=== PATIENT | female | born 1955 | race Caucasian/White ===

== ENCOUNTER 2017-02-25 05:13 | Emergency (ER) | payer MEDICAID, OTHER ==
[~2017-02-25] VITALS: Ht 162.6 cm; Wt 68.0 kg
[2017-02-25 05:13] VITALS: BP 141/82
[2017-02-25] MEDS ORDERED: DEXAMETHASONE SOD PHOSPHATE 10 MG/ML VIAL ONE (05:29)
[2017-02-25] MEDS ORDERED: FAMOTIDINE (20 MG) 20 MG TABLET PO ONE (05:30)
[2017-02-25] MEDS ORDERED: diphenhydrAMINE HCL 50 MG/ML VIAL ONE (05:30)
[2017-02-25] MEDS ORDERED: diphenhydrAMINE HCL 50 MG/ML VIAL IM ONE (05:30)
[2017-02-25] MEDS ORDERED: FAMOTIDINE (20 MG) 20 MG TABLET ONE (05:30)
[2017-02-25] MEDS ORDERED: DEXAMETHASONE SOD PHOSPHATE 4 MG/ML VIAL IM ONE (05:30)
== END 2017-02-25 05:27 | disposition home or self-care (01) ==
LOC: ER 05:18
DX: L50.0 Allergic urticaria (principal); I10 Essential (primary) hypertension; M54.30 Sciatica, unspecified side; Z98.890 Other specified postprocedural states
CPT/HCPCS: 96372 ×2; 99284; A4606; J1100; J1200; Z7610

== ENCOUNTER 2017-05-25 03:07 | Emergency (ER) | payer MEDICAID ==
[~2017-05-25] VITALS: Ht 165.1 cm; Wt 85.7 kg
--- NOTE | 2017-05-25 03:20 | NUR ---
PT PRESENTED TO THE ER WITH A C/O ALL OVER HIVES, REDNESS AND ITCHINESS. PT IS NOT SURE WHAT IS CAUSING THE REACTION, BUT IT STARTED AT 2300. PT STATED THAT SHE DID NOT TAKE ANY MEDICATION FOR THE REACTION. PT DENIES EATING ANYTHING NEW, DENIES USING NEW LOTION OR LAUNDRY DETERGENT. PT PUT HYDROCORTIZONE CREAM ON THE HIVES.
--- NOTE | 2017-05-25 03:22 | NUR ---
DR. MACKEY IS AT THE BEDSIDE.
[2017-05-25] MEDS ORDERED: diphenhydrAMINE HCL 50 MG CAPSULE ONE (03:25)
[2017-05-25] MEDS ORDERED: DEXAMETHASONE SOD PHOSPHATE 10 MG/ML VIAL ONE (03:25)
[2017-05-25] MEDS ORDERED: FAMOTIDINE (20 MG) 20 MG TABLET ONE ×2 (03:25→03:30)
[2017-05-25] MEDS ORDERED: DEXAMETHASONE SOD PHOSPHATE 4 MG/ML VIAL IM ONE (03:30)
[2017-05-25] MEDS ORDERED: diphenhydrAMINE HCL 50 MG CAPSULE PO ONE (03:30)
[2017-05-25] MEDS ORDERED: FAMOTIDINE (20 MG) 20 MG TABLET PO ONE (03:30)
--- NOTE | 2017-05-25 03:31 | NUR ---
PT REC'D MEDICATION ORDERED. WILL CONTINUE TO MONITOR THE PT.
--- NOTE | 2017-05-25 03:59 | NUR ---
PT APPEARS TO BE RESTING COMFORTABLY WITH NO S/S OF PAIN OR DISTRESS.
[2017-05-25] MEDS ORDERED: diphenhydrAMINE HCL 50 MG/ML VIAL ONE (04:35)
[2017-05-25] MEDS ORDERED: diphenhydrAMINE HCL 50 MG/ML VIAL IM ONE (05:00)
--- NOTE | 2017-05-25 05:03 | NUR ---
Patient discharged to home in stable condition. Written and verbal after care instructions given. Patient verbalizes understanding of instruction. PT'S HIVES ARE GONE. SLIGHT REDNESS NOTED ON CHEST, BUE. PT AMBULATED TO THE BATHROOM WITH A STEADY GAIT. PT IS TAKING A TAXI HOME AND WILL NET SOFTWARE DEVELOPER HER CAR LATER. PT'S VSS.
[2017-05-25 05:04] VITALS: BP 137/78
== END 2017-05-25 05:00 | disposition home or self-care (01) ==
LOC: ER 03:09
DX: L50.9 Urticaria, unspecified (principal); I10 Essential (primary) hypertension; M54.30 Sciatica, unspecified side
CPT/HCPCS: 96372 ×2; 99284; A4606; J1100; J1200; Q0163; Z7610

== ENCOUNTER 2018-02-04 20:46 | Emergency (ER) | payer MEDICAID ==
[~2018-02-04] VITALS: Ht 167.6 cm; Wt 88.9 kg
[2018-02-04 20:50] VITALS: BP 132/60
== END 2018-02-04 21:50 | disposition home or self-care (01) ==
LOC: ER 20:48
DX: S40.862A Insect bite (nonvenomous) of left upper arm, initial encounter (principal); S80.862A Insect bite (nonvenomous), left lower leg, initial encounter; I10 Essential (primary) hypertension; M54.30 Sciatica, unspecified side; Z96.651 Presence of right artificial knee joint; W57.XXXA Bitten or stung by nonvenomous insect and other nonvenomous arthropods, initial encounter; Y93.89 Activity, other specified; Y92.89 Other specified places as the place of occurrence of the external cause; Y99.8 Other external cause status
CPT/HCPCS: A4606; Z7610

== ENCOUNTER 2019-02-28 04:03 | Emergency (ER) | payer MEDICAID ==
[~2019-02-28] VITALS: Ht 165.1 cm; Wt 83.9 kg
[2019-02-28 04:10] VITALS: BP 147/113
[2019-02-28] MEDS ORDERED: DEXAMETHASONE SOD PHOSPHATE 10 MG/ML VIAL ONE (04:38)
[2019-02-28] MEDS ORDERED: diphenhydrAMINE HCL 50 MG/ML VIAL ONE (04:38)
--- NOTE | 2019-02-28 04:49 | NUR ---
Patient discharged to home in stable condition. Written and verbal after care instructions given. Patient verbalizes understanding of instruction. Pt ambulatory with a steady gait
[2019-02-28] MEDS ORDERED: diphenhydrAMINE HCL 50 MG/ML VIAL IM ONE (05:00)
[2019-02-28] MEDS ORDERED: DEXAMETHASONE SOD PHOSPHATE 10 MG/ML VIAL IM ONE (05:00)
== END 2019-02-28 04:49 | disposition home or self-care (01) ==
LOC: ER 04:05
DX: L50.9 Urticaria, unspecified (principal); I10 Essential (primary) hypertension; Z98.890 Other specified postprocedural states
CPT/HCPCS: 96372 ×2; 99283; J1100; J1200

== ENCOUNTER 2019-11-16 02:23 | Emergency (ER) | payer MEDICAID ==
[~2019-11-16] VITALS: Ht 152.4 cm; Wt 92.1 kg
[2019-11-16 02:48] VITALS: BP 169/110
[2019-11-16] MEDS ORDERED: FAMOTIDINE (20 MG) 20 MG TABLET ONE ×2 (03:02→04:05)
[2019-11-16] MEDS ORDERED: DEXAMETHASONE SOD PHOSPHATE 10 MG/ML VIAL ONE (03:02)
[2019-11-16] MEDS: FAMOTIDINE (20 MG) 20 MG TABLET PO ONE (03:06)
[2019-11-16] MEDS: DEXAMETHASONE SOD PHOSPHATE 4 MG/ML VIAL IM ONE (03:06)
[2019-11-16] MEDS ORDERED: diphenhydrAMINE HCL 50 MG/ML VIAL ONE (04:02)
[2019-11-16] MEDS: diphenhydrAMINE HCL 50 MG/ML VIAL IM ONE (04:04)
== END 2019-11-16 05:05 | disposition home or self-care (01) ==
LOC: ER 02:27
DX: L50.8 Other urticaria (principal); I10 Essential (primary) hypertension; Z98.890 Other specified postprocedural states
CPT/HCPCS: 96372 ×2; 99284; J1100; J1200

== ENCOUNTER 2019-11-17 06:31 | Emergency (ER) | payer MEDICAID ==
[~2019-11-17] VITALS: Ht 160 cm; Wt 92.1 kg
--- NOTE | 2019-11-17 06:41 | NUR ---
pt bibself c/o hives throughout body x 4 days, was seen here yesterday d/c with steroid medication. denies sob. scheduled allergy test 11/23/19; pt to bed 3, awake, alert, -sob, vss, nad noted, pending md queen
[2019-11-17] MEDS ORDERED: EPINEPHRINE (1:1000) 1 MG/ML AMPUL ONE (06:52)
[2019-11-17] MEDS ORDERED: predniSONE 10 MG TABLET ONE (06:52)
[2019-11-17] MEDS ORDERED: predniSONE 20 MG TABLET ONE (06:53)
--- NOTE | 2019-11-17 06:59 | NUR ---
epi sq given, placed on monitor. vss.
[2019-11-17] MEDS ORDERED: FAMOTIDINE/PF INJ 20 MG/2 ML VIAL IV ONE ×2 (07:00→07:16)
[2019-11-17] MEDS ORDERED: EPINEPHRINE (1:1000) MDV 30 MG/30ML VIAL SUBCUT ONE (07:00)
[2019-11-17] MEDS ORDERED: predniSONE 10 MG TABLET PO ONE (07:00)
[2019-11-17] MEDS ORDERED: IV NS 0.9% 1,000 ML BAG IV ONE (07:00)
--- NOTE | 2019-11-17 08:00 | NUR ---
PATIENT RESTING, SYMPTOMS SLOWLY IMPROVING.
--- NOTE | 2019-11-17 09:08 | NUR ---
IV removed. Catheter intact and site benign. Pressure and 4x4 applied to site. No bleeding noted. Patient discharged to home in stable condition. Written and verbal after care instructions given. Patient verbalizes understanding of instruction.
[2019-11-17 09:09] VITALS: BP 137/88
== END 2019-11-17 09:10 | disposition home or self-care (01) ==
LOC: ER 06:34
DX: L50.0 Allergic urticaria (principal); I10 Essential (primary) hypertension; M54.30 Sciatica, unspecified side; Z98.890 Other specified postprocedural states
CPT/HCPCS: 96372; 96374; 99284; J0171 ×2; J3490; J7030; J7512 ×2

== ENCOUNTER 2020-03-29 01:08 | Emergency (ER) | payer MEDICARE, OTHER ==
[~2020-03-29] VITALS: Ht 167.6 cm; Wt 70.8 kg
--- NOTE | 2020-03-29 01:10 | NUR ---
PT AAOX4. BIBSELF C/O ALLERGIC RXN TO NUTS, INGESTED AROUND 7PM, BOGDAN TAKEN 10PM NO RELIEF. PT PLACED IN BED 4 ON MONITOR AND PULSE OX. NO ACUTE DISTRESS NOTED. RR EVEN AND UNLABORED. MD AT BEDSIDE FOR EVAL AWAITING ORDERS.
[2020-03-29] MEDS ORDERED: diphenhydrAMINE HCL 50 MG/ML VIAL ONE (01:34)
[2020-03-29] MEDS ORDERED: DEXAMETHASONE SOD PHOSPHATE 10 MG/ML VIAL ONE (01:34)
[2020-03-29] MEDS ORDERED: diphenhydrAMINE HCL 50 MG/ML VIAL IM ONE (02:00)
[2020-03-29] MEDS ORDERED: DEXAMETHASONE SOD PHOSPHATE 4 MG/ML VIAL IM ONE (02:00)
--- NOTE | 2020-03-29 02:20 | NUR ---
PT STATED SHE FEELS BETTER, REQUESTING TO GO HOME. MD AWARE.
--- NOTE | 2020-03-29 02:23 | NUR ---
Patient discharged to home in stable condition. Written and verbal after care instructions given. Patient verbalizes understanding of instruction and RX. Pt was told to be picked up or take an uber. Pt stated she will be picked up. vss. Ambulated with steady gait. vss.
[2020-03-29 02:26] VITALS: BP 151/89
== END 2020-03-29 02:27 | disposition home or self-care (01) ==
LOC: ER 01:12
DX: T78.1XXA Other adverse food reactions, not elsewhere classified, initial encounter (principal); I10 Essential (primary) hypertension; Z98.890 Other specified postprocedural states; X58.XXXA Exposure to other specified factors, initial encounter
CPT/HCPCS: 96372 ×2; 99284; J1100; J1200

== ENCOUNTER 2020-04-10 23:09 | Emergency (ER) | payer MEDICARE, MEDICAID ==
[~2020-04-10] VITALS: Ht 167.6 cm; Wt 70.8 kg
[2020-04-10 23:19] VITALS: BP 158/110
[2020-04-10] MEDS ORDERED: diphenhydrAMINE HCL 50 MG/ML VIAL ONE (23:56)
[2020-04-10] MEDS ORDERED: EPINEPHRINE (1:1000) 1 MG/ML AMPUL ONE (23:56)
[2020-04-10] MEDS ORDERED: FAMOTIDINE (20 MG) 20 MG TABLET ONE (23:57)
[2020-04-10] MEDS ORDERED: predniSONE 20 MG TABLET ONE (23:57)
[2020-04-11] MEDS ORDERED: EPINEPHRINE (1:1000) 1 MG/ML AMPUL IM ONE
[2020-04-11] MEDS ORDERED: FAMOTIDINE (20 MG) 20 MG TABLET PO ONE
[2020-04-11] MEDS ORDERED: diphenhydrAMINE HCL 50 MG/ML VIAL IM ONE
[2020-04-11] MEDS ORDERED: predniSONE 50 MG TABLET PO ONE
== END 2020-04-11 01:36 | disposition home or self-care (01) ==
LOC: ER 23:11
DX: L50.8 Other urticaria (principal); I10 Essential (primary) hypertension; Z98.890 Other specified postprocedural states
CPT/HCPCS: 96372 ×2; 99284; J0171; J1200; J7512

== ENCOUNTER 2020-10-27 00:11 | Emergency (ER) | payer MEDICARE, OTHER ==
[~2020-10-27] VITALS: Ht 160 cm; Wt 83.9 kg
--- NOTE | 2020-10-27 00:35 | NUR ---
CALLED PT TO TRIAGE ROOM. NO ANSWER
--- NOTE | 2020-10-27 00:41 | NUR ---
BIBS FOR C/O BILATERAL LOWER BAD PAIN RADIATING TO THE BACK X 3 DAYS, - DYSURIA, - HEMATURIA, + URINARY FREQUESNCY. PT AMBULATORY TO BED 3. WAS PLACED ON A MONITOR
[2020-10-27 01:40] LABS: BILIRUBIN,URINE NEGATIVE (NEGATIVE); COLOR,URINE YELLOW (YELLOW); LEUKOCYTE ESTERASE ,URINE MODERATE (NEGATIVE); NITRITE, URINE NEGATIVE (NEGATIVE); PROTEIN,URINE NEGATIVE (NEGATIVE); UGLUCOSE NEGATIVE (NEGATIVE); UROBILINOGEN,URINE 0.2 EU/dL (0.2)
[2020-10-27] MEDS ORDERED: KETOROLAC TROMETHAMINE 15 MG/ML VIAL ONE (01:41)
--- NOTE | 2020-10-27 01:52 | NUR ---
LAC 18G PIV STARTED. BLOOD DRAWN AND SENT TO LAB
[2020-10-27] MEDS ORDERED: KETOROLAC TROMETHAMINE INJ 30 MG/ML VIAL IV ONE (02:00)
[2020-10-27] MEDS ORDERED: IV NS 0.9% 1,000 ML BAG IV ONE (02:00)
[2020-10-27 02:01] LABS: BASOPHILS # (AUTO) 0.1 /CMM (0.0-0.2); BASOPHILS % (AUTO) 0.5 % (0.0-2.0); EOSINOPHILS % (AUTO) 1.1 % (0.0-6.0); HEMATOCRIT 43 % (33-45); HEMOGLOBIN 14.1 g/dL (11.5-14.8); LYMPHOCYTES # (AUTO) 4.2 /CMM (0.8-4.8); MEAN CORPUSCULAR HGB CONC 33 g/dl (31.0-36.0); MEAN CORPUSCULAR VOLUME 90 fL (82-100); MONOCYTES # (AUTO) 0.7 /CMM (0.1-1.30); MONOCYTES % (AUTO) 6.5 % (2.0-12.0); NEUTROPHILS # (AUTO) 5.9 /CMM (1.8-8.9); NEUTROPHILS % (AUTO) 53.9 % (43.0-81.0); PLATELET COUNT (AUTO) 171 /CMM (150-450); RED BLOOD CELL COUNT(AUTO) 4.74 MIL/uL (4.0-5.2)
[2020-10-27 02:11] LABS: CALCIUM, SERUM 8.7 mg/dL (8.5-10.1); CREATININE 0.8 mg/dL (0.6-1.3); POTASSIUM 3.7 mmol/L (3.5-5.1)
[2020-10-27 02:17] LABS: ALBUMIN 3.4 g/dL (3.4-5.0); BILIRUBIN,DIRECT 0.1 mg/dL (0.0-0.2); BILIRUBIN,TOTAL 0.3 mg/dL (0.2-1.0); TOTAL PROTEIN, SERUM 6.9 g/dL (6.4-8.2)
[2020-10-27 02:27] LABS: BACTERIA,URINE Few /HPF (None Seen); SQUAMOUS EPITHELIAL CELL,UR Few /HPF (None Seen)
[2020-10-27] MEDS ORDERED: CEFTRIAXONE 1GM BAG (ER ONLY) 1 GM/50 ML PIGGYBACK IV ONE (05:30)
[2020-10-27] MEDS ORDERED: CEPH500C2 PO (05:42)
[2020-10-27] MEDS ORDERED: NAPR-1192 PO (05:42)
[2020-10-27] MEDS ORDERED: CEFTRIAXONE 1GM BAG (ER ONLY) 50 ML IV ONE (05:46)
[2020-10-27 06:19] VITALS: BP 122/76
--- NOTE | 2020-10-27 06:19 | NUR ---
IV removed. Catheter intact and site benign. Pressure and 4x4 applied to site. No bleeding noted.
--- NOTE | 2020-10-27 06:19 | NUR ---
Patient discharged to home in stable condition. Written and verbal after care instructions given. Patient verbalizes understanding of instruction.
== END 2020-10-27 06:20 | disposition home or self-care (01) ==
LOC: ER 00:13
DX: N39.0 Urinary tract infection, site not specified (principal); I10 Essential (primary) hypertension; Z98.890 Other specified postprocedural states; Z79.899 Other long term (current) drug therapy
CPT/HCPCS: 36415; 74177; 80048; 80076; 81001; 83690; 85025; 87040 ×2; 87086; 96361; 96365; 96375; 99285; J0696; J1885; J7030

== ENCOUNTER 2024-01-11 23:24 | Emergency (ER) | payer MEDICARE, OTHER ==
[~2024-01-11] VITALS: Ht 162.6 cm; Wt 88.5 kg
[~2024-01-11 23:24] MED LIST: CEPH500C2 PO; NAPR-1192 PO
[2024-01-12] MEDS ORDERED: diphenhydrAMINE HCL 50 MG/ML VIAL ONE (00:05)
[2024-01-12] MEDS: DIPHENHYDRAMINE HCL 12.5 MG/5 ML UDC PO ONE (00:16)
[2024-01-12] MEDS: diphenhydrAMINE HCL 50 MG/ML VIAL IV ONE (00:16)
[2024-01-12 00:19] LABS: BASOPHILS % (AUTO) 0.5 % (0.0-2.0); EOSINOPHILS # (AUTO) 0.2 K/uL (0.0-0.7); EOSINOPHILS % (AUTO) 1.5 % (0.0-6.0); HEMATOCRIT 44 % (33-45); HEMOGLOBIN 14.8 g/dL (11.5-14.8); LYMPHOCYTES # (AUTO) 4.2 K/uL (0.8-4.8); LYMPHOCYTES % (AUTO) 41.8 % (20.0-44.0); MEAN CORPUSCULAR HEMOGLOBIN 29 PG (26.0-33.0); MEAN CORPUSCULAR HGB CONC 34 g/dl (31.0-36.0); MEAN CORPUSCULAR VOLUME 88 fL (82-100); MONOCYTES # (AUTO) 0.6 K/uL (0.1-1.30); MONOCYTES % (AUTO) 6.1 % (2.0-12.0); NEUTROPHILS # (AUTO) 5.1 K/uL (1.8-8.9); NEUTROPHILS % (AUTO) 50.1 % (43.0-81.0); PLATELET COUNT (AUTO) 172 K/uL (150-450); RED BLOOD CELL COUNT(AUTO) 5.03 MIL/uL (4.0-5.2); RED CELL DISTRIBUTION WIDTH 14.3 % (11.5-15.0); WHITE BLOOD COUNT (AUTO) 10.2 K/uL (4.3-11.0)
[2024-01-12 00:33] LABS: CALCIUM, SERUM 8.7 mg/dL (8.5-10.1); CARBON DIOXIDE 27 mmol/L (21-32); CHLORIDE 105 mmol/L (98-107); CREATININE 0.9 mg/dL (0.6-1.3); GLUCOSE 99 mg/dL (74-106); POTASSIUM 3.7 mmol/L (3.5-5.1); SODIUM SERUM 140 mmol/L (136-145); UREA NITROGEN, BLOOD 20 mg/dL (7-18)
[2024-01-12 00:44] LABS: ALANINE AMINOTRANSFERASE 24 U/L (12-78); ALBUMIN 3.2 g/dL (3.4-5.0); ALKALINE PHOSPHATASE 95 U/L (46-116); ASPARTATE AMINOTRANSFERASE 9 U/L (15-37); BILIRUBIN,DIRECT 0.1 mg/dL (0.0-0.2); BILIRUBIN,TOTAL 0.4 mg/dL (0.2-1.0); NT-PRO BNP 63 pg/mL (0-125); TOTAL PROTEIN, SERUM 7.4 g/dL (6.4-8.2)
[2024-01-12] MEDS ORDERED: dexaMETHasone SOD PHOSPHATE 10 MG/ML VIAL IV ONE (02:00)
[2024-01-12 02:26] VITALS: BP 146/84; TEMP 98.1; O2SAT 98
== END 2024-01-12 00:30 | disposition home or self-care (01) ==
LOC: ER 23:45
DX: J02.9 Acute pharyngitis, unspecified (principal); R06.02 Shortness of breath; R05.9 Cough, unspecified; I10 Essential (primary) hypertension; Z87.39 Personal history of other diseases of the musculoskeletal system and connective tissue; Z20.822 Contact with and (suspected) exposure to COVID-19
CPT/HCPCS: 99285; 71045; 93005; 96374; 87426; 87804 ×2; 85025; 80048; 80076; 36415; 84484; 83880; J1200; Q0163